=== PATIENT | female | born 1985 | race Caucasian/White ===

== ENCOUNTER 2019-02-02 12:05 | Inpatient (IN) | payer BC ==
--- NOTE | 2019-02-02 13:23 | PDOC ---
History of Present Illness - General Chief Complaint: Pain, Acute Stated Complaint: ABD PAIN/ NAUSEOUS Time Seen by Provider: 02/02/19 12:25 - History of Present Illness Initial Comments: Ms. Martinez is a 33 y/o female presenting with diffuse abdominal pain that started at 10pm last night associated with nausea without vomiting. Reports that the pain is intermittent and in her RUQ, LUQ, RLQ, and suprapubic area. Pain does not radiate. Describes pain as pressure and full like. Denies hx of prior. Ate at a restaurant last night. Reports subjective fever and chills last night. Denies chest pain, back pain, shortness of breath, headache. Denies diarrhea or constipation or passing gas, but has not been able to have a bowel movement. No blood per rectum. Denies dysuria or hematuria. Hx of depression and family hx of ovarian cancer and gallstones in mother. No daily medications. No prior abdominal surgeries. Breast Cancer Specialist: Elizabeth Burnham Ovarian Cancer Specialist: Dr. Riky Merino Puppet Maker: Mychal Hidalgo Past History - Past Medical History Allergies/Adverse Reactions: Allergies Allergy/AdvReac Type Severity Reaction Status Date / Time bupropion [From Wellbutrin] Allergy Verified 02/02/19 12:14 Home Medications: Ambulatory Orders Citalopram Hydrobromide [Citalopram HBr] 30 mg PO DAILY 02/02/19 COPD: No - Suicide/Smoking/Psychosocial Hx Smoking History: Unknown if ever smoked Have you smoked in the past 12 months: No Information on smoking cessation initiated: No Hx Alcohol Use: No Drug/Substance Use Hx: No Review of Systems - Review of Systems Comments:: ROS GENERAL/CONSTITUTIONAL: Reports fever or chills. No weakness._ HEAD, EYES, EARS, NOSE AND THROAT: No change in vision. No ear pain or discharge. No sore throat._ CARDIOVASCULAR: No chest pain or shortness of breath_ RESPIRATORY: Denies cough, hemoptysis_ GASTROINTESTINAL: Reports nausea. Denies vomiting, diarrhea, constipation. Reports abdominal pain (RUQ, RLQ, LUQ, suprapubic). GENITOURINARY: No dysuria, frequency, or change in urination. MUSCULOSKELETAL: No joint or muscle swelling or pain. No neck or back pain._ SKIN: No rash NEUROLOGIC: No headache, vertigo, loss of consciousness, or change in strength/ sensation._ ENDOCRINE: No increased thirst. No abnormal weight change_ HEMATOLOGIC/LYMPHATIC: No anemia, easy bleeding, or history of blood clots._ ALLERGIC/IMMUNOLOGIC: No hives or skin allergy._ *Physical Exam - Vital Signs Last Vital Signs Temp Pulse Resp BP Pulse Ox 97.9 F 72 16 110/81 100 02/02/19 12:10 02/02/19 12:10 02/02/19 12:10 02/02/19 12:10 02/02/19 12:10 - Physical Exam Comments: GENERAL: Awake, alert, and oriented to person/place/time, in no acute distress_ HEAD: No signs of trauma, normocephalic, atraumatic _ EYES: PERRLA, EOMI, sclera anicteric, conjunctiva clear_ ENT: Hearing grossly normal, nares patent, oropharynx clear without exudates. No uvular deviation. Moist mucosa_ NECK: Normal ROM, supple, no lymphadenopathy, JVD, or masses_ LUNGS: No distress, speaks in full sentences, clear to auscultation bilaterally _ HEART: Regular rate and rhythm, normal S1 and S2, no murmurs appreciated, peripheral pulses normal and equal bilaterally._ ABDOMEN: Soft, diffusely tender and mildly worse in the RUQ, RLQ, LUQ, and suprapubic areas. No guarding, no rebound. Normotympanic. No rash. No bruises. BACK: No CVA tenderness. EXTREMITIES: Normal inspection, Normal range of motion, no edema. No clubbing or cyanosis_ NEUROLOGICAL: Cranial nerves II through XII grossly intact. Normal speech, normal gait, no focal sensorimotor deficits _ SKIN: Warm, Dry, normal turgor, no rashes or lesions noted_ ED Treatment Course - LABORATORY CBC & Chemistry Diagram: 02/02/19 13:46 02/02/19 13:46 Medical Decision Making - Medical Decision Making 02/02/19 13:15 33F with diffuse abdominal pain and nausea w/o vomiting that started 10pm last night. Subjective fever and chills. No diarrhea/constipation/gas. DDx is broad and includes cholecystitis, appendicitis, ovarian torsion, ectopic , UTI. Will obtain CBC, CMP, lipase, UA/UC, beta-HCG. 02/02/19 15:19 POCUS shows gall bladder without cholelithiasis, wall thickening, or duct dilation, no hydronephrosis. Will obtain transvaginal US to r/o torsion. 02/02/19 17:21 TVUS shows bilateral ovarian cysts, right greater than left, without evidence of ovarian torsion or acute pathology. 02/02/19 19:[address] Shabazz who will admit the patient. 02/02/19 21:[address] Jaqueline LIZ to inform him about the patient and her admission status and US findings. *DC/Admit/Observation/Transfer Diagnosis at time of Disposition: Appendicitis Qualifiers: Appendicitis type: unspecified Qualified Code(s): K37 - Unspecified appendicitis - Discharge Dispostion Condition at time of disposition: Stable Decision to Admit order: Yes - Referrals - Patient Instructions - Post Discharge Activity
[2019-02-02] MEDS ORDERED: SODIUM CHLORIDE 0.9% 500 ML INFUS.BAG IV ONE (13:35)
[2019-02-02] MEDS ORDERED: ACETAMINOPHEN 1000 MG/100 ML VIAL (NON FORMULARY) IVPB ONE (13:35)
[2019-02-02] MEDS ORDERED: ACETAMINOPHEN INJECTION 100 ML IVPB ONE (14:13)
[2019-02-02 14:17] LABS: BASO % 0.4 % (0-2.0); EOS % 0.1 % (0-4.5); HEMATOCRIT 36.7 % (32.4-45.2); HEMOGLOBIN 12.5 GM/dL (10.7-15.3); LYMPH % 8.2 % (8-40); MCH 32.3 pg (25.7-33.7); MEAN PLT VOLUME 8.3 fl (7.5-11.1); MONO % 7.4 % (3.8-10.2); NEUT % 83.9 % (42.8-82.8); PLATELET COUNT 244 K/MM3 (134-434); RBC 3.86 M/mm3 (3.60-5.2); RDW 12.4 % (11.6-15.6)
[2019-02-02] MEDS ORDERED: MAG HYDROX/AL HYDROX/SIMETH -MYLANTA- ORAL SUSPENSION PO ONE (14:21)
[2019-02-02] MEDS ORDERED: FAMOTIDINE 20 MG/50 ML IVPB 20 MG/50 ML MG IVPB ONE ×2 (14:21→14:46)
[2019-02-02] MEDS ORDERED: LIDOCAINE VISCOUS 2% ORAL/TOP 20 ML UNIT-DOSE CUP MM ONE (14:22)
[2019-02-02 14:26] LABS: URINE APPEARANCE CLEAR; URINE BILIRUBIN NEGATIVE (NEGATIVE); URINE COLOR YELLOW; URINE GLUCOSE (UA) NEGATIVE (NEGATIVE); URINE KETONE 1+ (NEGATIVE); URINE LEUK ESTERASE NEGATIVE (NEGATIVE); URINE NITRITE NEGATIVE (NEGATIVE); URINE PROTEIN NEGATIVE (NEGATIVE); URINE UROBILINOGEN 0.2 mg/dL (0.2-1.0)
[2019-02-02 14:42] LABS: ALBUMIN 3.8 g/dl (3.4-5.0); BILIRUBIN,TOTAL 0.5 mg/dL (0.2-1); BLOOD UREA NITROGEN 9.5 mg/dL (7-18); CALCIUM 8.8 mg/dL (8.5-10.1); CREATININE 0.7 mg/dL (0.55-1.3); POTASSIUM 3.8 mmol/L (3.5-5.1); TOT PROT 6.6 g/dl (6.4-8.2)
[2019-02-02] MEDS ORDERED: MAG HYDROX/AL HYDROX/SIMETH 30 ML UNIT-DOSE CUP ONE (14:46)
[2019-02-02] MEDS ORDERED: LIDOCAINE VISCOUS 2% ORAL/TOP 20 ML UNIT-DOSE CUP ONE (14:46)
--- NOTE | 2019-02-02 15:40 | PDOC ---
Documentation entered by Onur Garvin SCRIBE, acting as scribe for Nanette Vo MD. Nanette Vo MD: This documentation has been prepared by the Virgie curtis Elijah, SCRIBE, under my direction and personally reviewed by me in its entirety. I confirm that the documentation accurately reflects all work, treatment, procedures, and medical decision making performed by me. Attending Attestation - Resident Resident Name: Skip Del Real - ED Attending Attestation I have performed the following: I have examined & evaluated the patient, The case was reviewed & discussed with the resident, I agree w/resident's findings & plan - HPI HPI: 02/02/19 15:36 33 yo F h/o depression, here with abdominal pain beginning last night at 10pm. Patient reports that the pain began in the RLQ and then became diffuse, but is now felt throughout the abdomen. Patient associates nausea, notes the pain worsens in certain positions (particularly on her side), and has intermittent burning/pulling when not urinating. Denies Fever, chills, vomiting, and abdominal surgeries in the past. no change to bowels. no h/o ovarian cyst. no prior abd surgeries. states is not has IUD Allergies: Bupropion PCP: Dr. Gagnon - Physicial Exam PE: 02/02/19 15:20 awake alert lungs bilat heart rrr no mrg abd soft mild rlq suprapubic ttp. no rebound no guaurding. no cva tenderness. ext wwp no edema. no calf tenderness. alert oriented x 3. - Medical Decision Making 02/02/19 15:38 33 yo F wtih h/o depression here with right sided abd pain, rlq now diffuse. differential includes cholelithiasis , appendicitis, ovarian cyst torsion, renal colic, uti . plan focused ED us GB, likely tvus eval ovarian torsion/ cyst. possible ct a/p r/o appendicitis. focused ED US RUQ normal gallbladder no stones. no wall thickening no edema, normal cbd. neg sonographic campbell's incidental evaluation pelvis reveals 6 cm ovarian cyst. will obtain tvus. 02/02/19 19:09 pt with elevated WBC 15, ovarian cyst noted on tvus. 6 cm d/w DR Veloz, will review awaiting call back. cTAP r/o appy suspicious for appendicitis. noted ovarian cyst. dr gomez paged, awaiting call back. signed out to Dr Dixon, 02/02/19 19:33 d/w dr Gomez, regarding appendicitis. will admit to hospitalist, will make NPO. type and screen. zodevann.
[2019-02-02] MEDS ORDERED: PIPERACILLIN/TAZOB 4.5 GM 4.5 GM in DEXTROSE 5%-WATER 100 ML IVPB ONE (19:32)
[2019-02-02] MEDS ORDERED: SODIUM CHLORIDE 1,000 ML IV SCH (19:45)
[2019-02-02] MEDS ORDERED: PIPERACILLIN/TAZOB 4.5 GM 4.5 GM/100 ML BAG IVPB ONE (19:46)
[2019-02-02] MEDS ORDERED: ONDANSETRON 4 MG/2 ML VIAL IVPUSH PRN (20:12)
[2019-02-02] MEDS ORDERED: ACETAMINOPHEN 1000 MG/100 ML VIAL (NON FORMULARY) IVPB PRN (20:15)
--- NOTE | 2019-02-02 20:34 | HP ---
CHIEF COMPLAINT: diffuse abd pain PCP: HISTORY OF PRESENT ILLNESS: 33F w/ pmh of chronic anxiety presents w/ complaint of diffuse abdominal pain, more severe in RLQ(9/10 severity) w/a F/C, nausea x1d. Currently, pain is 3/10 after getting ofirmev, GI cocktail(famotidine, viscous lidocaine, mylanta). Has had intermittent episodes of sharp RLQ lasting 5mins, occurring a few times per year. Had no appetite last night but currently has appetite and would eat pizza. Does not have regular menstrual cycles due to Mirena IUD. Never had U/S imaging prior to [facility]. Engages in nonbarrier sexual intercourse with monogamous . Denies abnormal vaginal discharge, h/o STDs. Recovering from cold with residual nonproductive cough for past few weeks. Plans to fly next week for a work conference in [place]. ER course was notable for: (1) administered ofirmev, famotidine, viscous lido -- pain improved (2) CT A/P -- hyperemic and thickened appendix, b/l ovarian cysts (3) TVUS -- R ovarian cyst(6.4x5.8x4.7cm), L ovarian cyst(1.9x1.9x2.0cm) (4) zosyn started (5) Surg(Mer) consulted -- will eval in AM Recent Travel: PAST MEDICAL HISTORY: none PAST SURGICAL HISTORY: root canal Social History: Smoking: denies Alcohol: a few times/week, w/ meals Drugs: denies Family History: breast Ca in maternal grandmother, and aunt Allergies bupropion [From Wellbutrin] Allergy (Verified 02/02/19 12:14) -- severe skin rash HOME MEDICATIONS: Home Medications Medication Instructions Recorded NK [No Known Home Medication] 02/02/19 REVIEW OF SYSTEMS CONSTITUTIONAL: fever, chills, malaise Absent: diaphoresis, generalized weakness, loss of appetite, weight change HEENT: Absent: rhinorrhea, nasal congestion, difficulty swallowing, visual changes CARDIOVASCULAR: Absent: chest pain, syncope, palpitations, irregular heart rate, peripheral edema RESPIRATORY: nonproductive cough Absent: shortness of breath, wheezing, stridor, hemoptysis GASTROINTESTINAL: abdominal pain, nausea, Absent: abdominal distension, vomiting, diarrhea, constipation GENITOURINARY: Absent: dysuria, frequency, urgency, hesitancy, hematuria, vaginal discharge MUSCULOSKELETAL: Absent: myalgia, arthralgia, joint swelling, back pain, neck pain SKIN: Absent: rash, itching, pallor HEMATOLOGIC/IMMUNOLOGIC: Absent: lymphadenopathy, frequent infections ENDOCRINE: Absent: unexplained weight gain, unexplained weight loss NEUROLOGIC: Absent: headache, focal weakness or paresthesias, dizziness, mental status changes, bladder or bowel incontinence PHYSICAL EXAMINATION Vital Signs - 24 hr 02/02/19 02/02/19 02/02/19 12:10 17:53 19:19 Temperature 97.9 F 97.8 F Pulse Rate 72 Pulse Rate [ 74 75 Right Radial] Respiratory 16 18 Rate Blood Pressure 110/81 Blood Pressure 106/70 107/72 [Left Arm] O2 Sat by Pulse 100 97 99 Oximetry (%) GENERAL: Awake, alert, and fully oriented, in no acute distress. HEAD: Normal with no signs of trauma. EYES: extraocular movements intact, sclera anicteric, conjunctiva clear. EARS, NOSE, THROAT: Ears normal, nares patent, oropharynx clear without exudates. Moist mucous membranes. NECK: Normal range of motion, supple without lymphadenopathy, JVD, or masses. LUNGS: Breath sounds equal, clear to auscultation bilaterally. No wheezes, and no crackles. No accessory muscle use. HEART: Regular rate and rhythm, normal S1 and S2 without murmur, rub or gallop. ABDOMEN: Soft, not distended, no guarding, no rebound, no masses. Mild TTP of McBurney's point. Neg psoas. Neg Rovsing's. Neg obturator MUSCULOSKELETAL: Normal range of motion at all joints. No bony deformities or tenderness. No CVA tenderness. UPPER EXTREMITIES: 2+ pulses, warm, well-perfused. No cyanosis. No clubbing. No peripheral edema. LOWER EXTREMITIES: 2+ pulses, warm, well-perfused. No calf tenderness. No peripheral edema. NEUROLOGICAL: Normal speech. PSYCHIATRIC: Cooperative. Good eye contact. Appropriate mood and affect. SKIN: Warm, dry, normal turgor, no rashes or lesions noted, normal capillary refill. Laboratory Results - last 24 hr 02/02/19 02/02/19 02/02/19 13:46 13:46 13:46 WBC 15.0 H RBC 3.86 Hgb 12.5 Hct 36.7 MCV 95.0 MCH 32.3 MCHC 34.0 RDW 12.4 Plt Count 244 MPV 8.3 Absolute Neuts (auto) 12.6 H Neutrophils % 83.9 H Lymphocytes % 8.2 Monocytes % 7.4 Eosinophils % 0.1 Basophils % 0.4 Nucleated RBC % 0 Sodium 138 Potassium 3.8 Chloride 104 Carbon Dioxide 29 Anion Gap 4 L BUN 9.5 Creatinine 0.7 Est GFR (CKD-EPI)AfAm 131.02 Est GFR (CKD-EPI)NonAf 113.04 Random Glucose 92 Calcium 8.8 Total Bilirubin 0.5 AST 8 L ALT 14 Alkaline Phosphatase 64 Total Protein 6.6 Albumin 3.8 Lipase Urine Color Urine Appearance Urine pH Ur Specific Hulbert Urine Protein Urine Glucose (UA) Urine Ketones Urine Blood Urine Nitrite Urine Bilirubin Urine Urobilinogen Ur Leukocyte Esterase Urine HCG, Qual Negative 02/02/19 02/02/19 13:46 13:46 WBC RBC Hgb Hct MCV MCH MCHC RDW Plt Count MPV Absolute Neuts (auto) Neutrophils % Lymphocytes % Monocytes % Eosinophils % Basophils % Nucleated RBC % Sodium Potassium Chloride Carbon Dioxide Anion Gap BUN Creatinine Est GFR (CKD-EPI)AfAm Est GFR (CKD-EPI)NonAf Random Glucose Calcium Total Bilirubin AST ALT Alkaline Phosphatase Total Protein Albumin Lipase 199 Urine Color Yellow Urine Appearance Clear Urine pH 8.0 Ur Specific Hulbert 1.021 Urine Protein Negative Urine Glucose (UA) Negative Urine Ketones 1+ H Urine Blood Negative Urine Nitrite Negative Urine Bilirubin Negative Urine Urobilinogen 0.2 Ur Leukocyte Esterase Negative Urine HCG, Qual ASSESSMENT/PLAN: 33F w/ pmh of chronic anxiety presents w/ complaint of diffuse abdominal pain, more severe in the RLQ; imaging suggestive of mild early appendicitis, less likely Right ovarian cyst rupture # RLQ abd pain likely 2/2 mild early appendicitis > CT A/P(02/02/19): appendix is hyperemic, thickened ~9mm. R ovarian cyst ~5.9 x5.4 x5.9cm. L ovarian cyst ~2.5cm; IUD noted > WBC 15(neutrophils 83.9%) - Surg consulted(Mer) -- will evaluate in AM - NPO - IVF: NS @100ml/h - IV abx: zosyn - pain control: Ofirmev 1000mg q6h # ovarian cyst b/l -- newly diagnosed - patient has a regular SENIOR WEB DEVELOPER - consider outpt f/u Antonio MarrDO PGY-1 Medicine, PM-Float [id number] 02/02/19 Visit type - Emergency Visit Emergency Visit: Yes ED Registration Date: 02/02/19 Care time: The patient presented to the Emergency Department on the above date and was hospitalized for further evaluation of their emergent condition. - New Patient This patient is new to me today: Yes Date on this admission: 02/03/19 - Critical Care Critical Care patient: No ATTENDING PHYSICIAN STATEMENT I saw and evaluated the patient. I reviewed the resident's note and discussed the case with the resident. I agree with the resident's findings and plan as documented. SUBJECTIVE: OBJECTIVE: ASSESSMENT AND PLAN:
[2019-02-02 22:20] VITALS: BMI 26.2
--- NOTE | 2019-02-03 00:06 | PN ---
Teaching Attending Note Name of Resident: Antonio Marr ATTENDING PHYSICIAN STATEMENT I saw and evaluated the patient. chart, data, imaging reviewed. I reviewed the resident's note and discussed the case with the resident. I agree with the resident's findings and plan as documented. SUBJECTIVE: 33yo woman with anxiety c/o rlq abdominal pain x1 day associated w/ nausea and chills, started abruptly. OBJECTIVE: Last Vital Signs Temp Pulse Resp BP Pulse Ox 98.7 F 68 20 114/61 98 02/02/19 20:12 02/02/19 20:12 02/02/19 20:12 02/02/19 20:12 02/02/19 20:12 general - nad, nontoxic heent- nc, at neck supple abd- soft, mild rlq tenderness ext- no edema Abnormal Lab Results 02/02/19 02/02/19 02/02/19 13:46 13:46 13:46 WBC 15.0 H Absolute Neuts (auto) 12.6 H Neutrophils % 83.9 H Anion Gap 4 L AST 8 L Urine Ketones 1+ H abd/pelvic ct- acute appendicitis, b/l ovarian cysts ASSESSMENT AND PLAN: #Acute appendicitis, leukocytosis -med/surg -npo -s/p one dose zosyn -surgery consult -iv fluids -zofran -type and screen -pt/ptt -dvt ppx- scds
[2019-02-03] MEDS ORDERED: PIPERACILLIN/TAZOB 3.375 GM 3.375 GM in DEXTROSE 5%-WATER - 50 ML IVPB ONE (07:26)
[2019-02-03] MEDS ORDERED: DEXTROSE 5%-WATER - 50 ML IVPB ONE (08:10)
[2019-02-03] MEDS ORDERED: PIPERACILLIN/TAZOBACTAM 3.375 GM VIAL IVPB ONE (08:10)
[2019-02-03 08:28] LABS: BASO % 0.8 % (0-2.0); EOS % 0.4 % (0-4.5); HEMOGLOBIN 12.2 GM/dL (10.7-15.3); INR 1.14 (0.83-1.09); LYMPH % 27.6 % (8-40); MCH 32.4 pg (25.7-33.7); MCHC 33.9 g/dl (32.0-36.0); MEAN CELL VOLUME 95.8 fl (80-96); MEAN PLT VOLUME 8.5 fl (7.5-11.1); MONO % 7.9 % (3.8-10.2); NEUT % 63.3 % (42.8-82.8); PLATELET COUNT 262 K/MM3 (134-434); PROTHROMBIN TIME (PATIENT) 13.5 SEC (9.7-13.0); RBC 3.75 M/mm3 (3.60-5.2); RDW 12.1 % (11.6-15.6); WHITE BLOOD COUNT 9.2 K/mm3 (4.0-10.0)
[2019-02-03 08:31] LABS: ACTIVATED PTT 31.1 SECONDS (25.2-36.5)
[2019-02-03] MEDS ORDERED: BUPIVACAINE HCL/PF 0.5% (5MG/ML) 10 ML VIAL ONE (08:40)
[2019-02-03 08:46] LABS: ALBUMIN 3.6 g/dl (3.4-5.0); BILIRUBIN,TOTAL 0.8 mg/dL (0.2-1); BLOOD UREA NITROGEN 7.3 mg/dL (7-18); CALCIUM 8.5 mg/dL (8.5-10.1); CREATININE 0.7 mg/dL (0.55-1.3); MAGNESIUM 2.3 mg/dL (1.8-2.4); POTASSIUM 3.8 mmol/L (3.5-5.1); TOT PROT 6.4 g/dl (6.4-8.2)
--- NOTE | 2019-02-03 09:17 | CON.ID ---
Consult - Past Medical History ...: No - Alcohol/Substance Use Hx Alcohol Use: No - Smoking History Smoking history: Unknown if ever smoked Have you smoked in the past 12 months: No Home Medications - Allergies Allergies/Adverse Reactions: Allergies Allergy/AdvReac Type Severity Reaction Status Date / Time bupropion [From Wellbutrin] Allergy Verified 02/02/19 12:14 - Home Medications Home Medications: Ambulatory Orders Citalopram Hydrobromide [Citalopram HBr] 30 mg PO DAILY 02/02/19 Physical Exam Vital Signs: Vital Signs Temperature 97.8 F 02/03/19 05:00 Pulse Rate 67 02/03/19 05:00 Respiratory Rate 20 02/02/19 20:12 Blood Pressure 108/60 02/03/19 05:00 O2 Sat by Pulse Oximetry (%) 98 02/02/19 20:12 Labs: CBC, BMP 02/03/19 07:00 02/03/19 06:00
--- NOTE | 2019-02-03 09:26 | CONSULT ---
- Consultation REQUESTING PROVIDER: Gilda MONTEJO CONSULT REQUEST: We have been asked to surgically evaluate this patient for appendicitis PCP:Mary Saul NP HISTORY OF PRESENT ILLNESS:FRENCH who is a 33 y/o female who presented w/ 48 hours of ? general ? 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 PMHx: genetic marker similar to BRCA followed at [facility] [place]; being screened w/ mammos and tests superintendent onc exams PSHx: none Home Medications Medication Instructions Recorded Citalopram Hydrobromide 30 mg PO DAILY 02/02/19 [Citalopram HBr] Allergies Allergy/AdvReac Type Severity Reaction Status Date / Time bupropion [From Wellbutrin] Allergy Verified 02/02/19 12:14 REVIEW OF SYSTEMS: CONSTITUTIONAL: Absent: fever, chills, diaphoresis, generalized weakness, malaise, loss of appetite, weight change CARDIOVASCULAR: Absent: chest pain, syncope, palpitations, irregular heart rate, lightheadedness , peripheral edema RESPIRATORY: Absent: cough, shortness of breath, dyspnea with exertion, wheezing, stridor, hemoptysis GASTROINTESTINAL: Absent: abdominal pain, abdominal distension, nausea, vomiting, diarrhea, constipation, melena, hematochezia GENITOURINARY: h/o ovarian cysts MUSCULOSKELETAL: Absent: myalgia, arthralgia, joint swelling, back pain, neck pain SKIN: Absent: rash, itching, pallor HEMATOLOGIC/IMMUNOLOGIC: Absent: easy bleeding, easy bruising, lymphadenopathy NEUROLOGIC: Absent: headache, focal weakness, paresthesias, dizziness, unsteady gait, seizure, mental status changes, bladder or bowel incontinence PSYCHIATRIC: Absent: anxiety, depression, suicidal or homicidal ideation, hallucinations. PHYSICAL EXAM: GENERAL: Awake, alert, and fully oriented, in no acute distress. HEAD: Normal with no signs of trauma. EYES: sclera anicteric, conjunctiva clear. NECK: Normal ROM, supple without lymphadenopathy, JVD, or masses. LUNGS: Clear to auscultation bilat anteriorly. HEART: Regular rate No murmurs ABDOMEN: Soft,tender RLQ w/guarding and rebound, not distended, normoactive bowel sounds, no hernias; psoas and obturator and rovsings signs are present; no hernias.. No organomegaly. MUSCULOSKELETAL: Normal ROM at all joints. No bony deformities or tenderness. No CVA tenderness. UPPER EXTREMITIES: 2+ pulses, warm, well-perfused. No cyanosis. Cap refill <2 seconds. No peripheral edema. LOWER EXTREMITIES: 2+ pulses, warm, well-perfused. No calf tenderness. No peripheral edema. NEUROLOGICAL: Normal speech, gait not observed. PSYCH: Cooperative. Good eye contact. Appropriate mood and affect. SKIN: Warm, dry, normal turgor, no rashes or lesions noted. Vital Signs Temperature 97.8 F 02/03/19 05:00 Pulse Rate 67 02/03/19 05:00 Respiratory Rate 20 02/02/19 20:12 Blood Pressure 108/60 02/03/19 05:00 O2 Sat by Pulse Oximetry (%) 98 02/02/19 20:12 Lab Results WBC 9.2 K/mm3 (4.0-10.0) 02/03/19 07:00 RBC 3.75 M/mm3 (3.60-5.2) 02/03/19 07:00 Hgb 12.2 GM/dL (10.7-15.3) 02/03/19 07:00 Hct 36.0 % (32.4-45.2) 02/03/19 07:00 MCV 95.8 fl (80-96) 02/03/19 07:00 MCHC 33.9 g/dl (32.0-36.0) 02/03/19 07:00 RDW 12.1 % (11.6-15.6) 02/03/19 07:00 Plt Count 262 K/MM3 (134-434) 02/03/19 07:00 Sodium 139 mmol/L (136-145) 02/03/19 06:00 Potassium 3.8 mmol/L (3.5-5.1) 02/03/19 06:00 Chloride 106 mmol/L (98-107) 02/03/19 06:00 Carbon Dioxide 27 mmol/L (21-32) 02/03/19 06:00 Anion Gap 6 MMOL/L (8-16) L 02/03/19 06:00 BUN 7.3 mg/dL (7-18) 02/03/19 06:00 Creatinine 0.7 mg/dL (0.55-1.3) 02/03/19 06:00 Random Glucose 85 mg/dL (74-106) 02/03/19 06:00 Calcium 8.5 mg/dL (8.5-10.1) 02/03/19 06:00 Blood Type B POSITIVE 02/02/19 19:55 Antibody Screen Negative 02/02/19 19:55 INR 1.14 (0.83-1.09) H 02/03/19 07:00 CT scan a/p reviewed and findings c/w acute appendicitis and R>L ovarian cyst. IMP: clinical and radiological evidence of acute appendicitis PLAN: Lap appendectomy; possible open; r/b/t/a's d/w the patient and she will sign informed consent. Sebas Del Angel MD FACS
[2019-02-03] MEDS ORDERED: PROPOFOL 20 ML ONE (09:27)
[2019-02-03] MEDS ORDERED: MIDAZOLAM HCL 2 MG/2 ML SINGLE DOSE VIAL ONE (09:27)
[2019-02-03] MEDS ORDERED: ROCURONIUM BROMIDE 50 MG/5 ML SYRINGE ONE (09:27)
[2019-02-03] MEDS ORDERED: ceFAZolin SODIUM 1 GM VIAL ONE (09:28)
[2019-02-03] MEDS ORDERED: DEXAMETHASONE SOD PHOSPHATE 4 MG/1 ML VIAL ONE (09:28)
[2019-02-03] MEDS ORDERED: SODIUM CHLORIDE 0.9% P/F 10 ML VIAL IJ ONE (09:28)
[2019-02-03] MEDS ORDERED: LIDOCAINE HCL/PF 2% SDV 5ML VIAL ONE (09:28)
[2019-02-03] MEDS ORDERED: KETOROLAC TROMETHAMINE 30 MG/1 ML VIAL ONE (09:28)
[2019-02-03] MEDS ORDERED: LIDOCAINE HCL 2% JELLY (5 ML/TUBE) ONE (10:00)
[2019-02-03] MEDS ORDERED: EPHEDRINE SULFATE/0.9% NACL/PF 50 MG/10 ML SYRINGE NR ONE (10:18)
[2019-02-03] MEDS ORDERED: BUPIVACAINE HCL/PF (5 MG/ML) 30 ML VIAL IJ ONE ×2 (10:20→10:57)
[2019-02-03] MEDS ORDERED: GLYCOPYRROLATE 0.2 MG/1 ML VIAL ONE (10:39)
[2019-02-03] MEDS ORDERED: NEOSTIGMINE METHYLSULFATE 0.5 MG/ML - 10 ML MDV ONE (10:39)
[2019-02-03] MEDS ORDERED: MORPHINE SULFATE 2 MG/ML VIAL IVPUSH PRN (11:31)
[2019-02-03] MEDS ORDERED: oxyCODONE HCL 5 MG TABLET PO PRN ×2 (11:32)
--- NOTE | 2019-02-03 11:39 | OP ---
Operative Note - Note: Operative Date: 02/03/19 Pre-Operative Diagnosis: Acute appendicitis Operation: Laparoscopic appendectomy Findings: as dictated Post-Operative Diagnosis: Same as Pre-op Surgeon: Sebas Del Angel Bail Bonding Agent: Prakash Garcia Anesthesiologist/DECORATING EQUIPMENT SETTER: Enrique Hendrix Anesthesia: General, Local (20cc .25% Marcaine ) Specimens Removed: appendix, peritoneal fluid Estimated Blood Loss (mls): 5 (ml) Drains, Volume Out (mls): 400 (ml yellow urine) Fluid Volume Replaced (mls): 1,200 (ml LR)
--- NOTE | 2019-02-03 11:40 | SURG ---
Surgery Computer Systems Hardware Analyst Note Computer Systems Hardware Analyst: Prakash Garcia PA-C (Suzy) Date of Service: 02/03/19 Diagnosis: Acute appendicitis Procedure: Laparoscopic appendectomy I was present for the entirety of the operative procedure. For further detail, please refer to operative report. Visit type - Case Type Case Type: Scheduled - Emergency Emergency Visit: Yes ED Registration Date: 02/02/19 Care time: The patient presented to the Emergency Department on the above date and was hospitalized for further evaluation of their emergent condition. - New patient This patient is new to me today: Yes Date on this admission: 02/03/19 - Critical Care Critical Care patient: No
[2019-02-03] MEDS ORDERED: ACETAMINOPHEN 1000 MG/100 ML VIAL (NON FORMULARY) IVPB PRN (11:48)
[2019-02-03] MEDS ORDERED: ONDANSETRON 4 MG/2 ML VIAL IVPUSH PRN (11:48)
[2019-02-03] MEDS ORDERED: ACETAMINOPHEN INJECTION 100 ML IVPB ONE (11:53)
--- NOTE | 2019-02-03 12:01 | EKG ---
Test Reason : Blood Pressure : / mmHG Vent. Rate : 070 BPM Atrial Rate : 070 BPM P-R Int : 134 ms QRS Dur : 092 ms QT Int : 400 ms P-R-T Axes : 062 068 031 degrees QTc Int : 432 ms NORMAL SINUS RHYTHM NON-SPECIFIC INTRA-VENTRICULAR CONDUCTION DELAY NO PREVIOUS ECGS AVAILABLE Confirmed by JOSÉ ROOT MD ([id number]) on 02/03/2019 12:00:27 PM Referred By: Confirmed By:JOSÉ ROOT MD
[2019-02-03] MEDS: SODIUM CHLORIDE 1,000 ML IV SCH ×2 (12:06→21:42)
[2019-02-03] MEDS ORDERED: LACTATED RINGERS SOLUTION 1,000 ML IV SCH (13:00)
--- NOTE | 2019-02-03 15:36 | PN ---
Progress Note, Physician Chief Complaint: abdominal pain History of Present Illness: Patient is a 33 year old female with a significant past medical history of anxiety presents to the Ed on 02/02/19 with complaints of dffuse abdominal pain, more severe in RLQ with nausea/vomiting. Patient was found to have acute appendicitis and is s/p laparoscopic appendectomy today. - Current Medication List Current Medications: Active Medications Acetaminophen (Ofirmev Injection -) 1,000 mg IVPB Q6H PRN PRN Reason: PAIN 1-3 Last Admin: 02/03/19 11:55 Dose: 1,000 mg Fentanyl (Sublimaze Injection -) 50 mcg IVPUSH [id number] PRN PRN Reason: PAIN-PACU ORDER X 4 DOSES ONLY Stop: 02/04/19 12:54 Sodium Chloride (Normal Saline -) 1,000 mls @ 100 mls/hr IV ASDIR KELL Last Admin: 02/03/19 12:06 Dose: 100 mls/hr Lactated Ringer's (Lactated Ringers Solution) 1,000 mls @ 125 mls/hr IV ASDIR KELL Morphine Sulfate (Morphine Sulfate) 2 mg IVPUSH Q4H PRN PRN Reason: PAIN LEVEL 7 - 10 Ondansetron HCl (Zofran Injection) 4 mg IVPUSH Q6H PRN PRN Reason: NAUSEA Oxycodone HCl (Roxicodone -) 5 mg PO Q6H PRN PRN Reason: PAIN LEVEL 4-6 Oxycodone HCl (Roxicodone -) 10 mg PO Q6H PRN PRN Reason: PAIN 7-10; IF MORPHINE NT WORK - Objective Vital Signs: Vital Signs Temperature 98.2 F 02/03/19 12:40 Pulse Rate 62 02/03/19 12:40 Respiratory Rate 18 02/03/19 12:40 Blood Pressure 93/56 L 02/03/19 12:40 O2 Sat by Pulse Oximetry (%) 100 02/03/19 12:40 Constitutional: Yes: Well Nourished, No Distress, Calm Eyes: Yes: WNL HENT: Yes: WNL Neck: Yes: WNL Cardiovascular: Yes: WNL, Regular Rate and Rhythm Respiratory: Yes: WNL, Regular, CTA Bilaterally Gastrointestinal: Yes: Soft, Other (surgical incisions c/d/i. scant amt of bleeding from umbilicus incision.) ...Rectal Exam: Yes: Deferred Edema: No Wound/Incision: Yes: Bleeding (scant amt of bleeding on umbilicus site. other surgical sites c/d/i.) ...Motor Strength: WNL Psychiatric: Yes: WNL Labs: CBC, BMP 02/03/19 07:00 02/03/19 06:00 INR, PTT INR 1.14 (0.83-1.09) H 02/03/19 07:00 Problem List - Problems (1) Appendicitis Assessment/Plan: s/p laproscopic appendectomy for acute appendicitis - POD #0 - monitor pain - encourage early ambulation - incentive spriometer - pain control - monitor nausea - regular diet per surgery Code(s): K37 - UNSPECIFIED APPENDICITIS Qualifiers: Appendicitis type: unspecified Qualified Code(s): K37 - Unspecified appendicitis (2) Prophylactic measure Assessment/Plan: fen toleraring po monitor electrolytes regular diet discharge in a.m. after seen by surgery Code(s): Z29.9 - ENCOUNTER FOR PROPHYLACTIC MEASURES, UNSPECIFIED Visit type - Emergency Visit Emergency Visit: No - New Patient This patient is new to me today: Yes Date on this admission: 02/03/19 - Critical Care Critical Care patient: No - Discharge Referral Referred to [facility] No
[2019-02-04] MEDS ORDERED: CITALOPRAM HYDROBROMIDE 10 MG TABLET (FP) PO SCH (10:00)
[2019-02-04 11:03] VITALS: BP 121/72; PULSE 72; TEMP 97.9
[2019-02-04 11:48] LABS: BASO % 0.2 % (0-2.0); EOS % 0.1 % (0-4.5); HEMATOCRIT 32.7 % (32.4-45.2); LYMPH % 26.2 % (8-40); MCH 32.6 pg (25.7-33.7); MCHC 33.8 g/dl (32.0-36.0); MEAN CELL VOLUME 96.3 fl (80-96); MEAN PLT VOLUME 8.4 fl (7.5-11.1); MONO % 9.2 % (3.8-10.2); NEUT % 64.3 % (42.8-82.8); PLATELET COUNT 226 K/MM3 (134-434); RBC 3.39 M/mm3 (3.60-5.2); RDW 12.2 % (11.6-15.6)
--- NOTE | 2019-02-04 11:59 | PN ---
Progress Note (short form) - Note Progress Note: Attending Surgeon POD #1 No c/o; tolerated diet VSS AF abdo-soft; port site drains c/d/i; o/w negative WBC-nl IMP: doing well PLAN: D/c home today to office f/u next week; instructions given re return to [facility]. Sebas Del Angel MD FACS
[2019-02-04 12:06] LABS: ALBUMIN 3.3 g/dl (3.4-5.0); BILIRUBIN,TOTAL 0.3 mg/dL (0.2-1); BLOOD UREA NITROGEN 7.2 mg/dL (7-18); CALCIUM 8.5 mg/dL (8.5-10.1); CREATININE 0.7 mg/dL (0.55-1.3); POTASSIUM 3.7 mmol/L (3.5-5.1); TOT PROT 6.1 g/dl (6.4-8.2)
--- NOTE | 2019-02-04 12:22 | OP ---
DATE OF OPERATION: 02/03/2019 PREOPERATIVE DIAGNOSIS: Acute appendicitis. POSTOPERATIVE DIAGNOSIS: Acute appendicitis. PROCEDURE: Laparoscopic appendectomy. SURGEON: Sebas Del Angel MD WELL LOGGING CAPTAIN MUD ANALYSIS: Prakash Garcia PA-C ANESTHESIA: General. OPERATIVE FINDINGS: Acute appendicitis and a right greater than left ovarian cyst. The rest of the findings were unremarkable. PROCEDURE: The patient was placed on the operating room table in the supine position and after the induction of general anesthesia, a Quintana catheter was placed uneventfully. The abdomen was prepped with ChloraPrep and draped in sterile fashion and a timeout was taken and pneumoperitoneum established above the umbilicus using a Veress needle. Once 15 mmHg intraabdominal pressures were achieved, a 5 mm port was placed at the umbilicus and laparoscopy carried out and the previous noted findings were observed. An additional 5 mm left lower quadrant port was placed, as well as a 12 mm suprapubic port just to the left of the midline. All ports being placed under laparoscopic vision. The appendix was identified and grasped and the mesoappendix serially divided using the LigaSure device. Once completely free, a 60 mm Endo RUTH purple load stapler was fired across the base of the appendix without incident. The appendix was then placed in an Endo Catch and brought out through the suprapubic port. Pneumoperitoneum was re-established and there was no evidence of bleeding from the suture line. Some fluid in the pelvis was suctioned and sent for culture and sensitivity and then hemostasis was checked again and noted to be good. All ports were removed under laparoscopic vision without evidence of bleeding from the port sites and the pneumoperitoneum evacuated. All port sites were infiltrated with 0.5% Marcaine and the defect in the 12 mm port site was closed with a [id number] 0 Vicryl suture. The skin edges were reapproximated in all cases with 4-0 Monocryl and the wounds dressed with Steri-Strips and Band-Aid dressings. The Quintana catheter was removed at the end of the procedure and the patient aroused from general anesthesia and transferred to the post anesthesia care unit in stable condition awake and alert. ESTIMATED BLOOD LOSS: 5 mL. REPLACEMENT: Crysalloid. DRAINS: None. SPECIMENS: Appendix to Pathology. I, Sebas Del Angel, was physically present in the operating room from the time the patient was placed on the operating room table until she was transferred to the post anesthesia care unit in [facility]. MD JACKIE Jaquez/[id number] MTDD
--- NOTE | 2019-02-04 12:25 | DS ---
Physical Exam: SUBJECTIVE: Patient seen and examined. sitting in chair, ambulating around room. denies pain. eating well, no nausea or vomiting. wants to go home OBJECTIVE: d/c home. cleared by surgery. Vital Signs Period Temp Pulse Resp BP Sys/Combs Pulse Ox Last 24 Hr 97.9 F-99.6 F 52-80 14-20 93-121/56-73 100-100 PHYSICAL EXAM GENERAL: The patient is awake, alert, and fully oriented, in no acute distress. HEAD: Normal with no signs of trauma. EYES: PERRL, extraocular movements intact, sclera anicteric, conjunctiva clear. ENT: Ears normal, nares patent, oropharynx clear without exudates, moist mucous membranes. NECK: Trachea midline, full range of motion, supple. LUNGS: Breath sounds equal, clear to auscultation bilaterally, no wheezes, no crackles, no accessory muscle use. HEART: Regular rate and rhythm ABDOMEN: Soft, nontender, nondistended, dressing c/d/i EXTREMITIES: no edema. NEUROLOGICAL: Normal speech, steady gait. LABS Laboratory Results - last 24 hr 02/04/19 02/04/19 11:10 11:10 WBC 9.0 RBC 3.39 L Hgb 11.0 Hct 32.7 MCV 96.3 H MCH 32.6 MCHC 33.8 RDW 12.2 Plt Count 226 MPV 8.4 Absolute Neuts (auto) 5.8 Neutrophils % 64.3 Lymphocytes % 26.2 Monocytes % 9.2 Eosinophils % 0.1 Basophils % 0.2 Nucleated RBC % 0 Sodium 142 Potassium 3.7 Chloride 111 H Carbon Dioxide 28 Anion Gap 3 L BUN 7.2 Creatinine 0.7 Est GFR (CKD-EPI)AfAm 131.02 Est GFR (CKD-EPI)NonAf 113.04 Random Glucose 99 Calcium 8.5 Total Bilirubin 0.3 AST 10 L ALT 12 L Alkaline Phosphatase 49 Total Protein 6.1 L Albumin 3.3 L HOSPITAL COURSE: Date of Admission:02/02/19 Date of Discharge: 02/04/19 Patient is a 33 year old female with a significant past medical history of anxiety presents to the Ed on 02/02/19 with complaints of dffuse abdominal pain, more severe in RLQ with nausea/vomiting. Patient was found to have acute appendicitis and is s/p laparoscopic appendectomy on 02/03/2019. Minutes to complete discharge: 60 Discharge Summary Reason For Visit: APPENDICITIS Current Active Problems Appendicitis (Acute) Prophylactic measure (Acute) Condition: Stable - Instructions Diet, Activity, Other Instructions: Dr. Del Angel Discharge Instructions Dear WATSON CELAYA, Post Operative Instructions Physical activity Resume your normal everyday activity as tolerated no heavy lifting or exercise until seen by your surgeon. You may walk unlimited amounts of and climb stairs. You may resume driving the car when you feel safe and comfortable behind the wheel. Wound care If you have a bandage, leave it on, and keep dry for 48 - 72 hours. After that time discard the outer bandage. If there are tapes on the skin under the outer bandage, leave them in place. They will peel off in the next 7 to 10 days. Do Not peel them off. You may shower 2 days after surgery. If there are tapes present on the skin, they can get wet. Diet There are no dietary restrictions. Eat healthy, high-fiber foods. Drink 6 to 8 glasses of liquid each day. This will assist in keeping your bowels are regular. Pain management You may take Tylenol or acetaminophen or Ibuprofen (for example, Motrin, Advil etc.) Any pain prescription medication ordered should be taken as prescribed for moderate to severe pain. Call Dr. Del Angel for any of the following: Severe pain not relieved by medication Fever of 101 or higher Excessive bleeding or drainage on dressing Inability to urinate Call the office at [phone] for a post operative appointment in 7 - 10 days. Referrals: Sebas Del Angel MD [Staff Physician] - Disposition: HOME - Home Medications Comprehensive Discharge Medication List: Ambulatory Orders Citalopram Hydrobromide [Citalopram HBr] 30 mg PO DAILY 02/02/19 Problem List - Problems (1) Appendicitis Assessment/Plan: s/p laproscopic appendectomy for acute appendicitis - POD #1 - denies pain - ambulating well - incentive spriometer - pain controlled - no nausea - tolerating regular diet ' cleared for d/c home Code(s): K37 - UNSPECIFIED APPENDICITIS Qualifiers: Appendicitis type: unspecified Qualified Code(s): K37 - Unspecified appendicitis (2) Prophylactic measure Assessment/Plan: Code(s): Z29.9 - ENCOUNTER FOR PROPHYLACTIC MEASURES, UNSPECIFIED This patient is new to me today: No Emergency Visit: Yes ED Registration Date: 02/02/19 Care time: The patient presented to the Emergency Department on the above date and was hospitalized for further evaluation of their emergent condition. Critical Care patient: No - Discharge Referral Referred to [facility] No
--- NOTE | 2019-02-04 13:00 | PN ---
Progress Note, Physician - Current Medication List Current Medications: Active Medications Acetaminophen (Ofirmev Injection -) 1,000 mg IVPB Q6H PRN PRN Reason: PAIN 1-3 Last Admin: 02/03/19 11:55 Dose: 1,000 mg Citalopram Hydrobromide (Celexa -) 30 mg PO DAILY [facility] Last Admin: 02/04/19 10:57 Dose: 30 mg Sodium Chloride (Normal Saline -) 1,000 mls @ 100 mls/hr IV ASDIR [facility] Last Admin: 02/03/19 21:42 Dose: 100 mls/hr Lactated Ringer's (Lactated Ringers Solution) 1,000 mls @ 125 mls/hr IV ASDIR [facility] Last Admin: 02/03/19 13:00 Dose: Not Given Morphine Sulfate (Morphine Sulfate) 2 mg IVPUSH Q4H PRN PRN Reason: PAIN LEVEL 7 - 10 Ondansetron HCl (Zofran Injection) 4 mg IVPUSH Q6H PRN PRN Reason: NAUSEA Oxycodone HCl (Roxicodone -) 5 mg PO Q6H PRN PRN Reason: PAIN LEVEL 4-6 Oxycodone HCl (Roxicodone -) 10 mg PO Q6H PRN PRN Reason: PAIN 7-10; IF MORPHINE NT WORK - Objective Vital Signs: Vital Signs Temperature 97.9 F 02/04/19 11:03 Pulse Rate 72 02/04/19 11:03 Respiratory Rate 17 02/04/19 11:03 Blood Pressure 121/72 02/04/19 11:03 O2 Sat by Pulse Oximetry (%) 100 02/04/19 09:00 Labs: CBC, BMP 02/04/19 11:10 02/04/19 11:10 INR, PTT INR 1.14 (0.83-1.09) H 02/03/19 07:00
--- NOTE | 2019-02-07 13:22 | PATH ---
Surgical Pathology Report Patient Name: WATSON CELAYA [facility]. Rec. #: [id number] /Age/Gender: 1985 (Age: 33) / F Account: [id number] Location: [address] [place] [address] Taken: 02/03/2019 Received: 02/03/2019 Reported: 02/07/2019 Physicians: Sebas Del Angel MD Specimen(s) Received APPENDIX Clinical History Acute appendicitis Final Diagnosis APPENDIX, APPENDECTOMY: ACUTE APPENDICITIS AND PERIAPPENDICITIS WITH FIBROUS OBLITERATION OF LUMEN. Electronically Signed Rosangela Mari M.D. Gross Description Received in formalin, labeled "appendix," is a 6.5 cm. in length vermiform appendix with a stapled margin of resection and moderate attached fat. The serosa is figueroa-red with attached exudate. Sectioning reveals a hemorrhagic lumen. The wall of the appendix averages 0.1 cm. in thickness. [employer] Displays Analyst sections are submitted in one cassette. /02/03/2019 saudi/02/03/2019
== END 2019-02-04 13:01 | disposition home or self-care (01) | DRG 343 ==
LOC: JER 12:05 → JERBED 19:52 → J6S 22:08
PROVIDERS: ADMIT Internal Medicine; ATTEND Nurse Practitioner Family
PROC: 0DTJ4ZZ Resection of Appendix, Percutaneous Endoscopic Approach (ICD-10-PCS; principal; 2019-02-03 09:00)
DX: K35.80 Unspecified acute appendicitis (principal); D72.829 Elevated white blood cell count, unspecified; N83.202 Unspecified ovarian cyst, left side; N83.201 Unspecified ovarian cyst, right side
CPT/HCPCS: 36415; 74177-TC; 76705-TC; 76830-TC; 80053; 81003; 83690; 83735; 84703; 85025; 85610; 85730; 86850; 86900; 86901; 87070; 87075; 87077; 87086; 87205; 88304-TC; 93005; 93010; 94010; 94760; 99283-25; J0131; J7030